=== PATIENT | female | born 1990 | race Caucasian/White ===

== ENCOUNTER 2021-07-24 16:54 | Outpatient (CLI) | payer OTHER, SELFPAY ==
[2021-07-24 16:57] VITALS: BP 124/93; PULSE 87; RESP 18; TEMP 37.4; O2SAT 98; BMI 23.9
[2021-07-24 17:58] VITALS: BP 121/89; PULSE 92; RESP 18; TEMP 37.3; O2SAT 100
[2021-07-24 18:57] VITALS: BP 130/83; PULSE 86; RESP 18; TEMP 37.3; O2SAT 100
== END 2021-07-24 16:55 | disposition home or self-care (01) ==
LOC: OPS 17:09
PROVIDERS: Visit Provider Nurse Practitioner Family
DX: U07.1 COVID-19 (principal)
CPT/HCPCS: 96365